=== PATIENT | female | born 1980 | race Caucasian/White ===

== ENCOUNTER 2018-12-27 22:47 | Emergency (ER) | payer BC, MEDICAID ==
[~2018-12-27] VITALS: Ht 157.5 cm; Wt 122.5 kg
[2018-12-27 22:54] VITALS: BP_SYST 195
--- NOTE | 2018-12-27 23:48 | NUR ---
Pt ambulatory to bed 7 for evaluation
--- NOTE | 2018-12-28 00:03 | NUR ---
Dr. Castro bedside for Pt eval
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
--- NOTE | 2018-12-28 01:00 | NUR ---
Pt taken to Radiology in stable condition
--- NOTE | 2018-12-28 01:12 | NUR ---
Pt back from Radiology, well tolerated
[2018-12-28] MEDS ORDERED: KETOROLAC TROMETHAMINE 60 MG/2 ML VIAL IM ONE (01:30)
--- NOTE | 2018-12-28 01:50 | NUR ---
Dr. Castro at bedside updating Pt, as well as inquiring about Pt's heavy tramadol usage. Pt immediately became defensive, as witnessed by ED director of recruiting and other ED Staff. Pt then agreed to be discharged.
[2018-12-28 02:00] VITALS: BP_SYST 195
--- NOTE | 2018-12-28 02:00 | NUR ---
Patient given written and verbal discharge instructions and verbalizes understanding. ER MD discussed with patient the results and treatment provided. Patient in stable condition. ID arm band removed. Patient educated on pain management and to follow up with PMD. Pain Scale 0/10. Opportunity for questions provided and answered.
== END 2018-12-28 03:58 | disposition home or self-care (01) ==
LOC: SED 22:47
DX: M25.561 Pain in right knee (principal); M25.562 Pain in left knee; M54.5 Low back pain; F11.90 Opioid use, unspecified, uncomplicated; E03.9 Hypothyroidism, unspecified; Z88.8 Allergy status to other drugs, medicaments and biological substances
CPT/HCPCS: 72131; 93970; 96372; 99284; J1885; 99283

== ENCOUNTER 2019-11-12 12:13 | Emergency (ER) | payer MEDICAID, OTHER ==
[~2019-11-12] VITALS: Ht 157.5 cm; Wt 118.8 kg
[2019-11-12] MEDS ORDERED: KETOROLAC TROMETHAMINE 60 MG/2 ML VIAL IM ONE (13:30)
== END 2019-11-12 13:53 | disposition home or self-care (01) ==
LOC: SED 12:13
DX: M54.40 Lumbago with sciatica, unspecified side (principal); E03.9 Hypothyroidism, unspecified; Z87.442 Personal history of urinary calculi; Z88.5 Allergy status to narcotic agent; Z88.4 Allergy status to anesthetic agent
CPT/HCPCS: 96372; 99283; J1885

== ENCOUNTER 2020-03-05 18:38 | Emergency (ER) | payer OTHER ==
[~2020-03-05] VITALS: Ht 157.5 cm; Wt 125.2 kg
[2020-03-05 18:53] VITALS: BP_SYST 160
--- NOTE | 2020-03-05 21:00 | NUR ---
Patient did not want to wait, Patient left without being seen. No further treatment provided. ER MD aware
== END 2020-03-05 21:00 | disposition left against medical advice (07) ==
LOC: SED 18:38
DX: M54.5 Low back pain (principal); Z53.21 Procedure and treatment not carried out due to patient leaving prior to being seen by health care provider

== ENCOUNTER 2020-11-10 20:00 | Emergency (ER) | payer OTHER ==
[~2020-11-10] VITALS: Ht 157.5 cm; Wt 124.7 kg
[2020-11-10 20:42] VITALS: BP_SYST 161
[2020-11-10] MEDS ORDERED: IBUP-1969 PO (22:57)
[2020-11-11 00:15] VITALS: BP_SYST 152
== END 2020-11-11 00:15 | disposition home or self-care (01) ==
LOC: SED 20:00
DX: S39.012A Strain of muscle, fascia and tendon of lower back, initial encounter (principal); Z87.442 Personal history of urinary calculi; X50.0XXA Overexertion from strenuous movement or load, initial encounter; Y93.89 Activity, other specified; Y92.89 Other specified places as the place of occurrence of the external cause; Y99.8 Other external cause status
CPT/HCPCS: 73030; 99283

== ENCOUNTER 2021-02-27 16:32 | Emergency (ER) | payer OTHER ==
[~2021-02-27] VITALS: Ht 154.9 cm; Wt 148.3 kg
[~2021-02-27 16:32] MED LIST: IBUP-1969 PO
[2021-02-27 16:45] VITALS: BP_SYST 158
--- NOTE | 2021-02-27 16:45 | NUR ---
Pt came to ER for SOB and bilateral calf pain with edema. Pt states she has had 16 pound weight gain over a couple day span and she was told by her nutrition representative to come to ER due to significant weight gain over short period of time. Pt currently resting in [facility], appears comfortable, VSS, awaiting MD.
--- NOTE | 2021-02-27 16:45 | NUR ---
Patient to ER bed 1 to gown for evaluation. Side rails up.
--- NOTE | 2021-02-27 16:55 | NUR ---
ER at bedside examining patient.
--- NOTE | 2021-02-27 17:32 | NUR ---
Radiology at bedside for xray
[2021-02-27] MEDS ORDERED: PRAZ2CAP PO (17:45)
[2021-02-27] MEDS ORDERED: BUPR200T2 PO (17:45)
[2021-02-27] MEDS ORDERED: QUET200T5 PO (17:45)
[2021-02-27] MEDS ORDERED: DULO60CA41 PO (17:45)
[2021-02-27] MEDS ORDERED: DOXE50CA4 PO (17:45)
[2021-02-27 17:59] LABS: CALCIUM 8.8 mg/dL (8.4-11.0); CREATININE 0.99 mg/dL (0.55-1.30); POTASSIUM 4.5 mmol/L (3.5-5.1)
[2021-02-27 18:04] LABS: PROTHROMBIN TIME 9.9 SECS (9.5-12.5)
[2021-02-27 18:05] LABS: ALBUMIN 2.7 g/dL (3.4-4.8); TOTAL BILIRUBIN 0.2 mg/dL (0.0-1.0)
[2021-02-27 18:13] LABS: BASOPHILS % (AUTO) 0.3 % (0.0-2.0); EOSINOPHILS # (AUTO) 0.1 K/uL (0.0-0.4); EOSINOPHILS % (AUTO) 2.1 % (0.0-4.0); HEMATOCRIT 32.8 % (36-48); HEMOGLOBIN 10.7 g/dL (12.0-16.0); LYMPHOCYTES # (AUTO) 1.7 K/uL (1.0-5.5); LYMPHOCYTES % (AUTO) 29.2 % (20.5-51.5); MEAN CORPUSCULAR HEMOGLOBIN 28 pg (27-31); MEAN CORPUSCULAR HGB CONC 33 % (32-36); MEAN CORPUSCULAR VOLUME 85 fL (79.0-98.0); MONOCYTES # (AUTO) 0.6 K/uL (0.0-1.0); MONOCYTES % (AUTO) 10.3 % (1.7-9.3); NEUTROPHILS # (AUTO) 3.4 K/uL (1.8-7.7); NEUTROPHILS % (AUTO) 58.1 % (40.0-70.0); PLATELET COUNT (AUTO) 227 K/uL (130-430); RED BLOOD CELL COUNT(AUTO) 3.84 MIL/uL (4.2-6.2); RED CELL DISTRIBUTION WIDTH 14.5 % (9.0-15.0); WHITE BLOOD COUNT (AUTO) 5.8 K/uL (4.8-10.8)
--- NOTE | 2021-02-27 18:16 | NUR ---
Pt resting [facility] at this time
--- NOTE | 2021-02-27 19:13 | NUR ---
REPORT RECEIVED FROM LICHA DONATO. WILL ASSUME ALL CARE OF PATIENT. PATIENT RESTING COMFORTABLY. C/O PAIN TO UPPER AND LOWER EXTREMITIES. AWAITING LAB RESUTLS. CONSENT FOR CTA OF CHEST OBTAINED.
[2021-02-27] MEDS ORDERED: IOHEXOL 350 mgI/mL, 150 ML INFUS..BTL IV ONE (19:25)
--- NOTE | 2021-02-27 19:47 | NUR ---
Patient taken to CTA of chest via wheelchair. VSS.
--- NOTE | 2021-02-27 21:10 | NUR ---
Patient resting quietly. No acute distress noted. Vital signs within normal range. AWAITING FOR CT RESULTS AND DISPOSITION.
[2021-02-27] MEDS ORDERED: ZIT250 PO (21:33)
[2021-02-27 21:43] VITALS: BP_SYST 157
--- NOTE | 2021-02-27 21:44 | NUR ---
Patient given written and verbal discharge instructions and verbalizes understanding. DR. HUBER BANEGAS MD discussed with patient the results and treatment provided. Patient in stable condition. ID arm band removed. IV catheter removed intact and dressing applied, no active bleeding. Rx of ZITHROMAX given. Patient educated on pain management and to follow up with PMD. Pain Scale 0/10. Opportunity for questions provided and answered. Medication side effect fact sheet provided.
[2021-02-27] MEDS ORDERED: AZITHROMYCIN 250 MG TABLET PO ONE (21:45)
== END 2021-02-27 21:43 | disposition home or self-care (01) ==
LOC: SED 16:32
DX: J18.9 Pneumonia, unspecified organism (principal); R06.02 Shortness of breath; E03.9 Hypothyroidism, unspecified; Z88.8 Allergy status to other drugs, medicaments and biological substances; Z79.899 Other long term (current) drug therapy
CPT/HCPCS: 36415; 71045; 71275; 76376; 80053; 85025; 85379; 85610; 85730; 93005; 93970; 99285; Q0144; Q9967